=== PATIENT | male | born 1980 | race Caucasian/White ===

== ENCOUNTER 2021-06-24 02:07 | Emergency (ER) | payer OTHER ==
[~2021-06-24] VITALS: Ht 175.3 cm; Wt 102.9 kg
[2021-06-24] MEDS ORDERED: VITAMIN D (02:15)
[2021-06-24] MEDS ORDERED: PRAZ5CAP PO (02:15)
[2021-06-24] MEDS ORDERED: ZOLO25TA PO (02:15)
[2021-06-24] MEDS ORDERED: XARE20TA PO (02:15)
[2021-06-24] MEDS ORDERED: TOPR50TA PO (02:15)
[2021-06-24 03:21] LABS: BASO % 0.3 % (0.0-1.0); EOS # 0.1 10^3/uL (0.0-0.5); EOS % 1.7 % (0.0-3.0); HEMATOCRIT 43.2 % (42.0-52.0); HEMOGLOBIN 14.7 g/dl (13.5-17.5); LYMPH # 2.2 10^3/uL (1.5-5.0); LYMPH % 32.7 % (24.0-44.0); MEAN CORPUSCULAR HEMOGLOBIN 29.1 pg (27.0-33.0); MEAN CORPUSCULAR VOLUME 85.5 fl (80.0-96.0); MONO # 0.5 10^3/uL (0.0-0.8); MONO % 7.2 % (2.0-8.0); NEUTROPHILS # 3.8 10^3/uL (1.5-8.5); NEUTROPHILS % 57.3 % (36.0-66.0); PLATELET COUNT, AUTOMATED 126 10^3/uL (150-450); RED BLOOD COUNT 5.05 10^6/uL (4.30-6.10); WHITE BLOOD COUNT 6.6 10^3/uL (4.0-10.0)
[2021-06-24 03:31] LABS: INR 1.16; PROTHROMBIN TIME 15.2 SECONDS (12.7-14.5)
[2021-06-24] MEDS ORDERED: ISOVUE-370 76% 100ML VIAL As Ordered ONE (03:40)
[2021-06-24 04:14] LABS: BLOOD UREA NITROGEN 13 MG/DL (7-18); CALCIUM LEVEL 8.9 MG/DL (8.5-10.1); CARBON DIOXIDE LEVEL 30 MEQ/L (21-32); CHLORIDE LEVEL 104 MEQ/L (98-107); CREATININE FOR GFR 1.34 MG/DL (0.70-1.30); GLOMERULAR FILTRATION RATE > 60.0 (>60); GLUCOSE, FASTING 115 MG/DL (70-100); NT-PRO BNP 53 PG/ML (<125); POTASSIUM SERUM 3.8 MEQ/L (3.5-5.1); SODIUM LEVEL 140 MEQ/L (136-145)
[2021-06-24] MEDS ORDERED: GI COCKTAIL 50ML BTL(HYOSCYAMINE/MAALOX/LIDOCAINE VISCOUS)(1:3:1) PO ONE (05:25)
[2021-06-24 05:30] VITALS: BP 129/81
== END 2021-06-24 05:47 | disposition home or self-care (01) ==
LOC: M ED 02:07
DX: R00.2 Palpitations (principal); R07.89 Other chest pain; J91.8 Pleural effusion in other conditions classified elsewhere; Z79.899 Other long term (current) drug therapy
CPT/HCPCS: 36415; 71045; 71275; 80048; 83880; 84484; 85025; 85610; 93005; 93041; 94760; 99285; Q9967

== ENCOUNTER → 2021-09-11 | Outpatient (REF) ==
[~2021-09-11] MED LIST: PRAZ5CAP PO; TOPR50TA PO; VITAMIN D; XARE20TA PO; ZOLO25TA PO
== END ==
LOC: M PLAIMG 12:49
PROVIDERS: ATTEND Internal Medicine
DX: R06.02 Shortness of breath (principal)

== ENCOUNTER → 2021-11-30 | Outpatient (REF) | LOC: M PLAIMG 08:16 | PROVIDERS: ATTEND Internal Medicine | DX: Z00.00 Encounter for general adult medical examination without abnormal findings (principal) ==